=== PATIENT | female | born 1985 | race Caucasian/White ===

== ENCOUNTER 2017-09-15 06:45 | Inpatient (IN) | payer OTHER ==
[2017-09-15] MEDS ORDERED: CARBOPROST 250 MCG INJ IM ×2 (08:00→18:30)
[2017-09-15] MEDS ORDERED: IBUPROFEN 600 MG TAB PO (08:00)
[2017-09-15] MEDS ORDERED: OXYTOCIN 30 UNITS/LR 500 ML IV ×3 (08:00→18:30)
[2017-09-15] MEDS ORDERED: BUTORPHANOL 2 MG INJ IV (08:00)
[2017-09-15] MEDS ORDERED: MISOPROSTOL 200 MCG TAB PR ×2 (08:00→18:30)
[2017-09-15] MEDS ORDERED: LIDOCAINE 1% (MPF) 30 ML INJ INJ (08:00)
[2017-09-15] MEDS ORDERED: METHYLERGONOVINE 0.2 MG INJ IM ×2 (08:00→18:30)
[2017-09-15] MEDS ORDERED: BUTORPHANOL 1 MG INJ IV (08:00)
[2017-09-15 08:35] LABS: ADD MAN DIFF? NO
[2017-09-15 08:40] LABS: WHITE BLOOD COUNT 7.9 10^3/ul (4.8-10.8)
[2017-09-15 08:40] LABS: BASOPHIL # 0.1 10^3/ul (0.0-0.1); BASOPHILS % 0.6 % (0.0-2.0); EOSINOPHILS # 0.1 10^3/ul (0.0-0.5); EOSINOPHILS % 0.8 % (0.0-7.0); HEMATOCRIT 32.9 % (37.0-47.0); HEMOGLOBIN 10.3 g/dl (12.0-16.0); LYMPHOCYTES # 1.9 10^3/ul (0.8-2.9); LYMPHOCYTES % 23.4 % (15.0-51.0); MEAN CORPUSCULAR HEMOGLOBIN 26.1 pg (29.0-33.0); MEAN CORPUSCULAR HGB CONC 31.3 g/dl (32.0-37.0); MEAN CORPUSCULAR VOLUME 83.5 fl (82.0-101.0); MEAN PLATELET VOLUME 12.4 fl (7.4-10.4); MONOCYTE # 0.6 10^3/ul (0.3-0.9); MONOCYTES % 7.4 % (0.0-11.0); NEUTROPHIL # 5.3 10^3/ul (1.6-7.5); NEUTROPHILS % 66.9 % (39.0-77.0); PLATELET COUNT 179 10^3/UL (140-415); RED BLOOD COUNT 3.94 10^6/ul (4.20-5.40); RED CELL DISTRIBUTION WIDTH 14.5 % (11.5-14.5)
[2017-09-15] MEDS: LACTATED RINGER'S 1,000 ML IV ×2 (08:50→11:46)
[2017-09-15] MEDS: OXYTOCIN 30 UNITS/LR 500 ML IV ×3 (08:54→18:17)
[2017-09-15 08:57] LABS: INR 0.88; PT RATIO 0.9
[2017-09-15 08:58] LABS: PARTIAL THROMBOPLASTIN TIME 27.5 Sec (25.0-35.0)
[2017-09-15] MEDS ORDERED: FENTAnyl 2MCG/ML-ROPIV 0.2% 100 ML (11:42)
[2017-09-15] MEDS ORDERED: NALOXONE (0.4 MG/ML) INJ IV (15:00)
[2017-09-15] MEDS: FENTAnyl 2MCG/ML-ROPIV 0.2% 100 ML BAG EPI (17:33)
[2017-09-15 18:06] LABS: RAPID PLASMA REAGIN NONREACTIVE (NR)
[2017-09-15] MEDS ORDERED: LACTATED RINGER'S 1,000 ML IV* (18:18)
[2017-09-15] MEDS ORDERED: HYDROCODONE/APAP (5/325) TAB PO (18:30)
[2017-09-15] MEDS: IBUPROFEN 600 MG TAB PO (23:36)
[2017-09-15] MEDS: BENZOCAINE 20% 56 ML SPRAY TOP (23:37)
[2017-09-15] MEDS: LANOLIN 7 GM TUBE TOP (23:37)
[2017-09-16] MEDS: IBUPROFEN 600 MG TAB PO ×3 (05:40→17:42)
[2017-09-16 09:20] LABS: ADD MAN DIFF? NO
[2017-09-16 09:29] LABS: BASOPHILS % 0.2 % (0.0-2.0); EOSINOPHILS % 0.2 % (0.0-7.0); HEMOGLOBIN 9.8 g/dl (12.0-16.0); LYMPHOCYTES # 1.8 10^3/ul (0.8-2.9); LYMPHOCYTES % 12.7 % (15.0-51.0); MEAN CORPUSCULAR HEMOGLOBIN 25.7 pg (29.0-33.0); MEAN CORPUSCULAR HGB CONC 30.6 g/dl (32.0-37.0); MEAN CORPUSCULAR VOLUME 83.8 fl (82.0-101.0); MEAN PLATELET VOLUME 12.6 fl (7.4-10.4); MONOCYTE # 0.8 10^3/ul (0.3-0.9); MONOCYTES % 5.5 % (0.0-11.0); NEUTROPHIL # 11.3 10^3/ul (1.6-7.5); NEUTROPHILS % 80.8 % (39.0-77.0); PLATELET COUNT 170 10^3/UL (140-415); RED BLOOD COUNT 3.82 10^6/ul (4.20-5.40); RED CELL DISTRIBUTION WIDTH 14.8 % (11.5-14.5)
[2017-09-16] MEDS: VALACYCLOVIR 500 MG TAB PO (09:32)
[2017-09-17] MEDS: IBUPROFEN 600 MG TAB PO ×3 (00:46→11:41)
[2017-09-17] MEDS: VALACYCLOVIR 500 MG TAB PO (10:16)
[2017-09-17] MEDS: DIPHTH/TET/ACEL PERTUSS (ADULT) 0.5 ML VIAL IM* (11:42)
== END 2017-09-17 15:45 | disposition home or self-care (01) | DRG 775 ==
LOC: L-D 06:45 → PP1 21:26
PROVIDERS: Obstetrics & Gynecology
PROC: 10E0XZZ Delivery of Products of Conception, External Approach (ICD-10-PCS; principal; 2017-09-15 06:00)
PROC: 0KQM0ZZ Repair Perineum Muscle, Open Approach (ICD-10-PCS; 2017-09-15 06:00)
PROC: 3E033VJ Introduction of Other Hormone into Peripheral Vein, Percutaneous Approach (ICD-10-PCS; 2017-09-15 06:00)
DX: O70.1 Second degree perineal laceration during delivery (principal); Z37.0 Single live birth; Z3A.39 39 weeks gestation of pregnancy
CPT/HCPCS: 62319; 85025; 85610; 85730; 86592; 86850; 86900; 86901; 90715